=== PATIENT | male | born 2000 | race African-American/Black ===

== ENCOUNTER 2023-05-14 13:25 | Outpatient (CLI) | payer MEDICAID, SELFPAY ==
[2023-05-14 22:49] LABS: Chlamydia DNA Amplified* NOT DETECTED (No Detected); GC DNA Amplified* NOT DETECTED (No Detected)
== END 2023-05-14 13:26 | disposition home or self-care (01) ==
LOC: LKVREF 13:25
PROVIDERS: PCP Pediatrics; Visit Provider Nurse Practitioner Family
DX: Z11.3 Encounter for screening for infections with a predominantly sexual mode of transmission (principal)
CPT/HCPCS: 87491; 87591